=== PATIENT | male | born 1965 | race Caucasian/White ===

== ENCOUNTER → 2018-06-02 | Outpatient (CLI) | payer MEDICARE ==
--- NOTE | 2018-06-02 11:25 | KCIC ---
EXAMINATION: Magnetic resonance imaging (MRI) of the cervical spine without contrast 06/02/2018 11:00 AM HISTORY: Neck pain with bilateral upper extremity numbness and weakness, right greater than left. TECHNIQUE: Multiplanar multi-weighted MRI of the cervical spine was performed without intravenous contrast using the standard cervical spine protocol. Contrast information: None administered COMPARISON: None available. FINDINGS: There is minimal retrolisthesis of C3 on C4. There is grade 1 retrolisthesis of C4 on C5, C5 on C6 and C6 on C7. There is mild disc height loss at C4-C5, C5-C6 and C6-C7 with endplate remodeling and moderate anterior marginal osteophytes. No significant marrow edema is visualized. Marrow signal intensity is normal in all sequences. Spinal cord signal intensity is normal in all sequences. Vertebral body heights are maintained. There is no acute fracture identified. Posterior fossa is normal in appearance. Vertebral artery flow voids are maintained. There is no prevertebral soft tissue swelling. No paraspinal soft tissue abnormalities visualized. C2-C3: There is mild disc bulge. There is no significant facet or uncovertebral joint disease. No neuroforaminal or spinal canal stenosis. C3-C4: There is a posterior disc osteophyte complex asymmetric to the right. There is no significant facet arthropathy. There is mild uncovertebral joint disease. There is mild bilateral neuroforaminal stenosis. No spinal canal stenosis. C4-C5: There is a posterior disc osteophyte complex asymmetric to the right. There is mild facet arthropathy. There is moderate uncovertebral joint disease. There is moderate right and mild left neuroforaminal stenosis. There is mild spinal canal stenosis without deformity of the cord. C5-C6: There is a moderate posterior disc osteophyte complex. There is moderate facet arthropathy. There is moderate uncovertebral joint disease. There is moderate bilateral neuroforaminal stenosis. There is mild spinal canal stenosis without deformity of the cord. C6-C7: There is a moderate disc osteophyte complex with right central disc extrusion. There is moderate facet arthropathy and moderate uncovertebral joint disease. There is severe right and moderate left neuroforaminal stenosis. There is moderate spinal canal stenosis without deformity of the cord or cord signal alteration. C7-T1: The disc is normal in configuration. There is no significant neuroforaminal or spinal canal stenosis. IMPRESSION: Moderate degenerative changes of the cervical spine, as described in detail above. Findings are most prominent at C4-C5, C5-C6 and C6-C7. IMPRESSION: Mild degenerative changes of the cervical spine as described in detail above. Electronically signed by: Brittni León MD (06/02/2018 11:22 AM) [id number]
== END | disposition home or self-care (01) ==
LOC: KCIC MRI 10:34
PROVIDERS: ATTEND Family Medicine
DX: M50.223 Other cervical disc displacement at C6-C7 level (principal); M47.892 Other spondylosis, cervical region; M25.78 Osteophyte, vertebrae; M12.88 Other specific arthropathies, not elsewhere classified, other specified site; R29.890 Loss of height
CPT/HCPCS: 72141

== ENCOUNTER → 2018-10-26 | Outpatient (CLI) | payer MEDICARE ==
--- NOTE | 2018-10-26 10:03 | KCIC ---
MR of the left shoulder Indication: Left shoulder pain. Known bone spur. Symptoms in recent weeks. Comparison: None are available. Technique: Standard multiplanar sequences are obtained. Findings: Artifact: No significant image degradation. Acromioclavicular joint: Primary osteoarthritis. Undersurface osteophytes with mass effect. There is also relatively large subacromial spur. Rotator cuff: * Supraspinatus-infraspinatus tendon: Full-thickness rotator cuff tear of the supraspinatus tendon, measures about 2 cm AP diameter, with 2 cm retraction. There is a small ossicle just below the acromion within the supraspinatus defect, could represent a loose body. There is bone hypertrophy at the greater tuberosity. * Subscapularis tendon: Intact * Muscle bulk: Mild atrophy * Subacromial subdeltoid bursa: Moderate effusion. Fluid: Small glenohumeral effusion. Glenohumeral cartilage: Mild degenerative change Labrum: Mild signal at the posterosuperior labrum compatible with a small tear. Biceps tendon: Intact Bones: No lesion or acute fracture. Soft tissue: No acute findings.. Impression: 1. Moderate full-thickness retracted rotator cuff tear of the supraspinatus tendon. 2. Small posterosuperior labral tear. 3. Primary osteoarthritis. Undersurface osteophytes and mass effect at the AC joint. Electronically signed by: Norris Otto MD (10/26/2018 9:58 AM) [id number]
== END | disposition home or self-care (01) ==
LOC: KCIC MRI 08:13
PROVIDERS: ATTEND Orthopaedic Surgery Sports Medicine
DX: S43.492A Other sprain of left shoulder joint, initial encounter (principal); M75.102 Unspecified rotator cuff tear or rupture of left shoulder, not specified as traumatic; M19.012 Primary osteoarthritis, left shoulder; M25.712 Osteophyte, left shoulder; M62.512 Muscle wasting and atrophy, not elsewhere classified, left shoulder; M25.412 Effusion, left shoulder; X58.XXXA Exposure to other specified factors, initial encounter; Y93.89 Activity, other specified; Y92.89 Other specified places as the place of occurrence of the external cause; Y99.8 Other external cause status
CPT/HCPCS: 73221